=== PATIENT | male | born 1995 | race Caucasian/White ===

== ENCOUNTER 2018-05-27 12:45 | Emergency (ER) | payer SELFPAY ==
[~2018-05-27] VITALS: Ht 175.2 cm; Wt 59.0 kg
[~2018-05-27 12:45] MED LIST: ALLEGRA-D 12 HO1 TER PO; AUGMENTIN 875 M1 TA1 PO; AUGMENTIN 875875 MG PO; BACTROBAN CREAM15 GM PO; CLOTRIMAZOLE-BETAMET; FLONASE ALLERG9.9 ML NAS; HYDROXYZINE HYD25 MG PO; MOTRIN PO; NKHM; OMNICEF300 MG PO; PERCOCET 325 MG1 TA2 PO; PHENERGAN25 M1 PO; VICODIN 5/500 505 MG PO; ZITHROMAX250 MG PO; ZOFRAN ODT8 MG PO
[2018-05-27 12:46] VITALS: BP 108/72
[2018-05-27] MEDS ORDERED: ZITHROMAX250 MG PO (15:05)
== END 2018-05-27 16:30 | disposition home or self-care (01) ==
LOC: ED 12:45
DX: J40 Bronchitis, not specified as acute or chronic (principal); R04.2 Hemoptysis; F17.200 Nicotine dependence, unspecified, uncomplicated

== ENCOUNTER 2018-12-01 22:16 | Emergency (ER) | payer SELFPAY ==
[~2018-12-01] VITALS: Ht 177.8 cm; Wt 68.0 kg
[2018-12-01 22:17] VITALS: BP 121/62
[2018-12-01] MEDS ORDERED: CYCLOBENZAPRINE10 MG PO (22:30)
[2018-12-01] MEDS ORDERED: KETOROLAC10 MG PO (22:30)
== END 2018-12-01 22:45 | disposition home or self-care (01) ==
LOC: ED 22:16
DX: M25.512 Pain in left shoulder (principal); M54.6 Pain in thoracic spine; X50.0XXA Overexertion from strenuous movement or load, initial encounter; Y93.89 Activity, other specified; Y92.69 Other specified industrial and construction area as the place of occurrence of the external cause; Y99.0 Civilian activity done for income or pay

== ENCOUNTER 2018-12-08 06:52 | Emergency (ER) | payer SELFPAY ==
[~2018-12-08] VITALS: Ht 177.8 cm; Wt 68.0 kg
--- NOTE | ~2018-12-08 | EKG ---
[place], [place] ELECTROCARDIOGRAM REPORT NAME: CAIN MAZARIEGOS UNIT #: [id number] ROOM: DOCTOR: EPIPHANY DRAFT REPORT BIRTHDATE: [birth year] [facility] Test Date: 2018-12-08 Test Time: 06:56:18 Pat Name: CAIN MAZARIEGOS Department: Room: Gender: Sales And Service Associate: : 1995 Requested By: VAZQUEZ TEMPLE Order Number: [id number] Reading MD: Velasquez Rhodes MD Measurements Intervals [place] Rate: 87 P: 38 MT: 137 QRS: -39 QRSD: 107 T: 30 QT: 368 QTc: 443 Interpretive Statements Sinus rhythm Left axis deviation RSR' in V1 or V2, probably normal variant Electronically Signed On 12-09-2018 12:00:34 PDT by Velasquez Rhodes MD CM:EKGRPT:ELECTROCARDIOGRAM REPORT [id number] VAZQUEZ WILSON DRAFT REPORT VAZQUEZ TEMPLE DO
[~2018-12-08 06:52] MED LIST changes: +CYCLOBENZAPRINE10 MG PO; +KETOROLAC10 MG PO
[2018-12-08 07:31] LABS: BASO # 0.1 10*3/uL (0.0-0.1); BASO % 0.9 % (0.0-1.0); EOS # 0.2 10*3/uL (0.0-0.4); EOS % 2.7 % (1.0-4.0); HEMATOCRIT 48.6 % (42.0-52.0); HEMOGLOBIN 16.3 g/dl (14.0-18.0); LYMPH # 2.6 10*3/uL (1.3-4.4); LYMPH % 35.4 % (27.0-41.0); MEAN CELL VOLUME 99.2 fl (80.0-94.0); MEAN CORPUSCULAR HGB 33.3 pg (27.0-31.0); MEAN CORPUSCULAR HGB CONC 33.5 g/dl (33.0-37.0); MEAN PLATELET VOLUME 10.4 fl (9.6-12.3); MONO # 0.9 10*3/uL (0.1-1.0); MONO % 11.5 % (3.0-9.0); NEUT # 3.7 10*3/uL (2.3-7.9); NEUT % 49.2 % (47.0-73.0); PLATELET COUNT AUTOMATED 238 10*3/uL (130-400); RED CELL DISTRI WIDTH 11.9 % (0-14.5); WHITE BLOOD COUNT 7.4 10*3/uL (4.8-10.8)
[2018-12-08 07:42] LABS: ACT PARTIAL THROMBO TIME 28.4 SECONDS (20.0-32.1)
[2018-12-08 07:48] LABS: ALBUMIN 4.4 gm/dl (3.1-4.5); ALKALINE PHOSPHATASE 77 U/L (45-117); BUN 8 mg/dl (7-24); CHLORIDE 104 mmol/L (98-107); CREATININE 1.01 mg/dL (0.70-1.30); POTASSIUM 4.3 mmol/L (3.5-5.1); SGOT/AST 16 IU/L (3-35); SGPT/ALT 21 U/L (12-78); SODIUM 140 mmol/L (136-145); TOTAL PROTEIN 7.7 gm/dL (6.4-8.2)
[2018-12-08 07:50] LABS: TROPONIN I < 0.015 ng/ml (<0.045)
[2018-12-08 07:55] VITALS: BP 122/74
== END 2018-12-08 08:21 | disposition home or self-care (01) ==
LOC: ED 06:52
PROVIDERS: Emergency Medicine
DX: R07.89 Other chest pain (principal); L59.0 Erythema ab igne [dermatitis ab igne]; F17.210 Nicotine dependence, cigarettes, uncomplicated

== ENCOUNTER 2019-10-20 16:07 | Emergency (ER) | payer SELFPAY ==
[~2019-10-20] VITALS: Ht 175.2 cm; Wt 68.0 kg
[2019-10-20 16:12] VITALS: BP 117/66
== END 2019-10-20 18:10 | disposition home or self-care (01) ==
LOC: ED 16:07
DX: J02.9 Acute pharyngitis, unspecified (principal); G43.909 Migraine, unspecified, not intractable, without status migrainosus; F17.200 Nicotine dependence, unspecified, uncomplicated; Z79.2 Long term (current) use of antibiotics; Z79.899 Other long term (current) drug therapy; Z86.14 Personal history of Methicillin resistant Staphylococcus aureus infection

== ENCOUNTER 2020-10-28 16:12 | Emergency (ER) | payer SELFPAY ==
[~2020-10-28] VITALS: Ht 175.2 cm; Wt 68.0 kg
[2020-10-28 16:26] VITALS: BP 108/57
[2020-10-28] MEDS ORDERED: AUGMENTIN 875-875 MG PO (16:35)
== END 2020-10-28 16:40 | disposition home or self-care (01) ==
LOC: ED 16:12
DX: K08.89 Other specified disorders of teeth and supporting structures (principal); F17.200 Nicotine dependence, unspecified, uncomplicated; Z79.899 Other long term (current) drug therapy; Z79.2 Long term (current) use of antibiotics

== ENCOUNTER 2021-05-23 23:43 | Emergency (ER) | payer SELFPAY ==
[~2021-05-23] VITALS: Ht 175.2 cm; Wt 68.0 kg
[~2021-05-23 23:43] MED LIST changes: +AUGMENTIN 875-875 MG PO
[2021-05-23 23:53] VITALS: BP 128/81
[2021-05-24 00:17] LABS: BASO % 0.3 % (0.0-1.0); EOS # 0.1 10*3/uL (0.0-0.4); EOS % 0.8 % (1.0-4.0); HEMATOCRIT 44.5 % (42.0-52.0); LYMPH # 3.9 10*3/uL (1.3-4.4); LYMPH % 36.6 % (27.0-41.0); MEAN CELL VOLUME 91.8 fl (80.0-94.0); MEAN CORPUSCULAR HGB CONC 34.8 g/dl (33.0-37.0); MEAN PLATELET VOLUME 10.4 fl (9.6-12.3); MONO # 0.8 10*3/uL (0.1-1.0); NEUT # 5.9 10*3/uL (2.3-7.9); PLATELET COUNT AUTOMATED 295 10*3/uL (130-400); RED BLOOD COUNT 4.85 10*6/uL (4.50-5.90); RED CELL DISTRI WIDTH 11.9 % (0-14.5); WHITE BLOOD COUNT 10.6 10*3/uL (4.8-10.8)
[2021-05-24 00:33] LABS: ALBUMIN 3.9 gm/dl (3.1-4.5); ALKALINE PHOSPHATASE 111 U/L (45-117); BUN 9 mg/dl (7-24); CHLORIDE 106 mmol/L (98-107); CREATININE 0.97 mg/dL (0.70-1.30); LIPASE 128 U/L (73-393); POTASSIUM 3.2 mmol/L (3.5-5.1); SGOT/AST 20 IU/L (3-35); SGPT/ALT 53 U/L (12-78); SODIUM 138 mmol/L (136-145); TOTAL PROTEIN 7.9 gm/dL (6.4-8.2)
[2021-05-24] MEDS ORDERED: ZOFRAN4 MG PO (01:18)
== END 2021-05-24 01:21 | disposition home or self-care (01) ==
LOC: ED 23:43
PROVIDERS: Internal Medicine
DX: U07.1 COVID-19 (principal); B34.9 Viral infection, unspecified; E87.6 Hypokalemia

== ENCOUNTER 2022-08-29 05:38 | Emergency (ER) | payer SELFPAY ==
[~2022-08-29] VITALS: Ht 180.3 cm; Wt 72.6 kg
[~2022-08-29 05:38] MED LIST changes: +ZOFRAN4 MG PO
[2022-08-29] MEDS ORDERED: IBU800 M2 PO (05:55)
[2022-08-29] MEDS ORDERED: CYCLOBENZAPRINE10 MG PO (05:55)
[2022-08-29 06:02] VITALS: BP 126/82
[2022-08-29 06:15] LABS: BILIRUBIN Negative (Negative); BLOOD 2+ (Negative); CLARITY Clear (Clear); COLOR Yellow (Yellow); GLUCOSE Negative (Negative); KETONE Negative (Negative); LEUKO ESTERASE Negative (Negative); NITRITE Negative (Negative); UROBILINOGEN 0.2 E.U./dl (0.0-1.0)
[2022-08-29 06:25] LABS: RBC TNTC rbc/hpf (0-2)
[2022-08-29] MEDS ORDERED: ONDANSETRON4 MG SL (08:10)
[2022-08-29] MEDS ORDERED: FLOMAX0.4 MG PO (08:10)
[2022-08-29] MEDS ORDERED: PERCOCET 5-3251 EACH PO (08:10)
== END 2022-08-29 08:26 | disposition home or self-care (01) ==
LOC: ED 05:38
PROVIDERS: Emergency Medicine
DX: M54.50 Low back pain, unspecified (principal)

== ENCOUNTER 2023-07-04 14:51 | Emergency (ER) | payer MEDICAID ==
[~2023-07-04] VITALS: Ht 175.2 cm; Wt 68.0 kg
[~2023-07-04 14:51] MED LIST changes: +FLOMAX0.4 MG PO; +IBU800 M2 PO; +ONDANSETRON4 MG SL; +PERCOCET 5-3251 EACH PO
[2023-07-04 15:32] VITALS: BP 136/67
[2023-07-04] MEDS ORDERED: NAPROSYN500 MG PO (18:42)
== END 2023-07-04 20:14 | disposition home or self-care (01) ==
LOC: ED 14:51
DX: S43.101A Unspecified dislocation of right acromioclavicular joint, initial encounter (principal); F17.210 Nicotine dependence, cigarettes, uncomplicated; Z79.899 Other long term (current) drug therapy; V86.59XA Driver of other special all-terrain or other off-road motor vehicle injured in nontraffic accident, initial encounter; Y93.I9 Activity, other involving external motion; Y92.828 Other wilderness area as the place of occurrence of the external cause; Y99.8 Other external cause status

== ENCOUNTER 2024-02-13 00:24 | Emergency (ER) | payer MEDICAID ==
[~2024-02-13] VITALS: Ht 175.2 cm; Wt 68.0 kg
[~2024-02-13 00:24] MED LIST changes: +NAPROSYN500 MG PO
[2024-02-13 00:30] VITALS: BP 126/75
[2024-02-13] MEDS ORDERED: FLUORESCEIN SODIUM 1 MG STRIP OPH ONE (00:35)
[2024-02-13] MEDS ORDERED: CIPROFLOXACIN H10 ML OPH (01:22)
== END 2024-02-13 01:39 | disposition home or self-care (01) ==
LOC: ED 00:24
DX: T15.92XA Foreign body on external eye, part unspecified, left eye, initial encounter (principal); G43.909 Migraine, unspecified, not intractable, without status migrainosus; R11.2 Nausea with vomiting, unspecified; R20.0 Anesthesia of skin